=== PATIENT | male | born 1990 | race Caucasian/White ===

== ENCOUNTER 2019-06-25 13:16 | Emergency (ER) | payer OTHER ==
[~2019-06-25] VITALS: Ht 180.3 cm; Wt 65.9 kg
[2019-06-25] MEDS ORDERED: LIB10 PO (13:35)
[2019-06-25 16:00] VITALS: BP 149/89
== END 2019-06-25 16:36 | disposition home or self-care (01) ==
LOC: EMS 13:17
DX: M19.041 Primary osteoarthritis, right hand (principal)